=== PATIENT | female | born 1980 | race African-American/Black ===

== ENCOUNTER 2020-10-04 09:49 | Emergency (ER) | payer MEDICAID, OTHER ==
[~2020-10-04] VITALS: Ht 165.1 cm; Wt 131.0 kg
[2020-10-04] MEDS ORDERED: IBUPROFEN 400MG TABLET PO ONE (10:15)
[2020-10-04] MEDS ORDERED: ACETAMINOPHEN 325MG TABLET PO ONE (10:15)
[2020-10-04 10:25] VITALS: BP 168/81
[2020-10-04] MEDS ORDERED: NAPR-1176 MT (11:35)
[2020-10-04] MEDS ORDERED: ACET-2708 MT (11:35)
== END 2020-10-04 11:49 | disposition home or self-care (01) ==
LOC: ER 09:49
DX: R51.9 Headache, unspecified (principal); R03.0 Elevated blood-pressure reading, without diagnosis of hypertension; Z96.649 Presence of unspecified artificial hip joint; Z98.890 Other specified postprocedural states
CPT/HCPCS: 81025; 99283; Z7610